=== PATIENT | male | born 1965 | race African-American/Black ===

== ENCOUNTER → 2016-07-17 | Outpatient (CLI) | payer OTHER ==
--- NOTE | 2016-08-01 08:16 | CDE ---
ADMIT: 07/17/2016 RM/LOC: ADTC.[facility] MR#: [id number] [address] [id number] ELISEO TEMPLETON [address] [facility] [facility] [facility] [place] [address] Chemical Dependency Evaluation SEX: M AGE: 50 : 1965 A. DEMOGRAPHICS: NAME: Eliseo Templeton DATE OF : 1965 EVALUATING COUNSELOR: Malik Ray, , LMHP, [facility], CSAT DATE OF EVALUATION: 07/17/2016 B. PRESENTING PROBLEM/CHIEF COMPLAINT: This client was released from longterm April 05, 2016. He was referred here by his agricultural loan officer, Samuel Concepcion, as a standard evaluation for anyone that is released from longterm. C. MEDICAL HISTORY: This client has no medical issues at this time. D. WORK/SCHOOL/ HISTORY: WORK: This client is unemployed and he has been on disability for 20 years. EDUCATION: This client received his high school diploma. He learns best hands- [employer]. He has no present or future goals in the area of education. : This client has never been in the . E. ALCOHOL/DRUG ASSESSMENT SUMMARY: ALCOHOL: This client first drank alcohol at age 19. He experimented for about a year drinking 4 to 5 times in a year. He has not drank since he was 20 years old. MARIJUANA: This client first used marijuana at age 22. He experimented with it a little bit, but he has not smoked any marijuana since 1994. COCAINE: No use reported. METHAMPHETAMINES: Client shared he has been using meth for a long time and is still using three or four time a week. HALLUCINOGENS: No use reported. HEROIN: No use reported. PRESCRIPTION DRUGS: No abuse reported. OTHER DRUGS (INHALANTS, OVER THE COUNTER, ETC): No abuse reported. NICOTINE: No use reported. Negative consequences of this client's use: This client denied that he has had any negative consequences from use. He stated that he liked to sell it, but was never a user of the drugs. F. LEGAL HISTORY: This client had a possession of meth with an intent to distribute charge and ADMIT: 07/17/2016 [facility] MR#: [id number] [address] [address] ELISEO TEMPLETON [address] [place] [address] Chemical Dependency Evaluation SEX: M AGE: 50 : 1965 he spent a couple of different sessions in longterm because of that, but he utill continued to deny any drug use. G. FAMILY/SOCIAL/PEER HISTORY: This client was raised in [place], [place]. His parents did separate, he was not sure why. He denied that it has affected him. He loved his mom when she was around, but did not know his dad. He said he was most dominant in the family because he felt that he had to take care of his family. This client has never been . He said he is not in a relationship at this time. He also has no kids. SEXUAL HISTORY: This client stated he is heterosexual and he is comfortable with that orientation. He denied ever being the victim of sexual or physical abuse. He denied ever inflicting any sexual or physical abuse on others. SOCIAL RELATIONSHIPS: This client prefers to hang around people who do not use. The majority of his friends are nonusers. RECREATIONAL AND LEISURE ACTIVITIES: He enjoys doing yard work. He denied that he has ever drank or used drugs while doing that activity. SPIRITUAL: This client does believe in God or a higher power. He has lost his mom and his grandma who meant a lot to him. He does not belong to any particular yarsanism. H. PSYCHIATRIC/BEHAVIORAL HISTORY: This client has never thought of suicide and has never attempted it. He has no family history of suicide and has never had any in or outpatient treatment for mental health or behavioral problems. I. COLLATERAL INFORMATION: This client's agricultural loan officer was talked to, he said had a dirty UA for meth and admitted to using to the problem stage. Reports from prior treatments in longterm share a daily cannabis and crack cocaine. THE DRINKER TYPE RATING: Is a measure of how the client perceives their own drinking and/or using. This rating is indicative of how resistant or accepting the person is to the drinking problem. The client chose their rating from the following classifications: ALCOHOL Total Abstainer Light Social (non-problem) Drinker ADMIT: 07/17/2016 RM/LOC: [facility] MR#: [id number] [address] [place], [place] [id number] ELISEO TEMPLETON [address] [place] [address] Chemical Dependency Evaluation SEX: M AGE: 50 : 1965 Moderate Social (non-problem) Drinker User Heavy Social (non-problem)Drinker Problem Drinker Alcoholic OTHER DRUG Nonuser Light Social (non-problem) User Moderate Social (non-problem) User Heavy Social (non-problem) User Problem User Addicted/Dependent This client stated that he is a total abstainer of alcohol and a nonuser of other drugs. He listed his strengths as he is good with his hands and weaknesses are he has bad knees that is why he is on disability. SUBSTANCE ABUSE SUBTLE SCREENING INVENTORY (SASSI): The SASSI is an assessment tool specifically designed to provide a clearer picture of what lies beneath the facade presented by most patients or clients. Scores on this assessment aid in distinguishing nonabusers from abusers, alcoholics from drug abusers and nondefensive clients from defensive ones. The incorporation of a "denial scale" further enhances the ability to make an accurate recommendation. This client's SASSI scores according to the decision rule indicate that he has a low probability of having a substance dependence disorder, and his scores are as follows: Face Valid Alcohol (FVA): 0. Face Valid Other Drugs (FVOD): 4. Symptoms (SYM): 2. Obvious Attributes (OAT): 4. Subtle Attributes (SAT): 3. Defensiveness (DEF): 6. Supplemental Addiction Measure (NOEMI): 8. Family versus Controls (FAM): 11. Correctional (COR): 3. Random Answering Pattern (RAP): 0. Again, these scores indicate that he has a low probability of having a substance dependence disorder. We administered the ASI. Please see attached summary sheet. K. CLINICAL IMPRESSION: ADMIT: 07/17/2016 RM/LOC: [facility] MR#: [id number] [address] [place], [place] [id number] ELISEO TEMPLETON [facility] [place] [address] Chemical Dependency Evaluation SEX: M AGE: 50 : 1965 1. F14.20 Cocaine Used Disorder Moderate 2. F12.20 Cannabis Use Disorder Severe 2. Z560, unemployment due to being disabled. 3. Z652, problems related to release from longterm. 4. GAF 40. This client was well dressed for this interview. He denied his use that was reported from longterm records. L. RECOMMENDATIONS PRESENTED TO CLIENT: This client was told that he would be referred to Out Patient counseling and he was explained how that program works. CLIENT/FAMILY RESPONSE: This client stated he was okay with that. ASA CLINICAL ASSESSMENT CRITERIA: Low/Medium/High Dimension 1 = Intoxication and Withdrawal (i.e. history of withdrawal, level of current use): Low. Dimension 2 = Medical (i.e. , diabetes, medications, chronic conditions): Low. Dimension 3 = Emotional/Behavior Conditions (i.e. psych history, impulsivity, depression, anxiety, trauma history): Low. Dimension 4 = Treatment Acceptance/Resistance (i.e. past history, minimization/blame, acknowledgement of problem, pressure to seek treatment, does not feel they have a problem): High. Dimension 5 = Relapse Potential (i.e. inability to abstain, use despite consequences, significant preoccupation, relapse despite outpatient treatment attempts): Low. Dimension 6 = Recovery/Living Environment ADMIT: 07/17/2016 RM/LOC: [facility] MR#: [id number] [place] [id number] ELISEO TEMPLETON [facility] [place] [address] Chemical Dependency Evaluation SEX: M AGE: 50 : 1965 (i.e. current users reside in environment, family attitude, lack of consistent adult support in living environment, high exposure to using in social/work environment): Low. CRIMINOGENIC RISK FACTORS: Low/Moderate/High Antisocial Attitudes: Low. Antisocial Peers: Low. Self Control Skills: Medium. Family Dysfunction: Low. Past Criminality: High. Thank you for the opportunity to work with this client. Malik Ray MS,JASMINEHP,LADC, CSAT/ modl JOB #: [id number] CC:
== END | disposition home or self-care (01) ==
LOC: ADTC.GI 05-29 10:00
DX: Z65.2 Problems related to release from prison (principal)